=== PATIENT | male | born 1990 | race Two or more races ===

== ENCOUNTER 2018-02-19 00:13 | Emergency (ER) | payer SELFPAY ==
[~2018-02-19] VITALS: Ht 170.2 cm; Wt 70.0 kg
[2018-02-19] MEDS ORDERED: LORAZEPAM 0.5MG TABLET PO ONE (10:00)
[2018-02-19 10:05] LABS: OPIATES URINE SCREEN NEGATIVE (NEGATIVE)
[2018-02-19 10:06] LABS: *AMPHETAMINES SCREEN URINE NEGATIVE (NEGATIVE); *BARBITURATES SCREEN URINE NEGATIVE (NEGATIVE); CANNABINOID URINE SCREEN PRESUMTIVE POSITIVE (NEGATIVE); PHENCYCLIDINE URINE SCREEN NEGATIVE (NEGATIVE)
[2018-02-19 10:08] LABS: *BENZODIAZEPINES SCREEN URINE NEGATIVE (NEGATIVE)
[2018-02-19 10:10] LABS: METHADONE URINE SCREEN NEGATIVE (NEGATIVE)
[2018-02-19 10:12] LABS: *COCAINE SCREEN URINE NEGATIVE (NEGATIVE)
[2018-02-19 10:14] VITALS: BP 128/71
== END 2018-02-19 10:16 | disposition home or self-care (01) ==
LOC: ER 00:13
DX: F10.229 Alcohol dependence with intoxication, unspecified (principal); R05 Cough; J45.909 Unspecified asthma, uncomplicated; Y90.8 Blood alcohol level of 240 mg/100 ml or more
CPT/HCPCS: 36415; 71045; 80305; 99285; G0482